=== PATIENT | male | born 1965 | race Caucasian/White ===

== ENCOUNTER 2023-09-07 05:40 | Emergency (ER) | payer OTHER ==
[~2023-09-07] VITALS: Ht 167.6 cm; Wt 68.0 kg
[2023-09-07] MEDS ORDERED: SULTRIDS PO (06:44)
[2023-09-07] MEDS ORDERED: Tetanus,Diphtheria Toxd Ped/Pf 0.5 ML VIAL IM ONE (06:45)
[2023-09-07] MEDS ORDERED: Tetanus and Diphtheria Toxoid 0.5 ML INJ IM ONE (07:10)
== END 2023-09-07 07:39 | disposition home or self-care (01) ==
LOC: ER 05:40
DX: S80.851A Superficial foreign body, right lower leg, initial encounter (principal); W45.8XXA Other foreign body or object entering through skin, initial encounter
CPT/HCPCS: 90471; 90702; 90714; 99282-25